=== PATIENT | male | born 1995 | race Caucasian/White ===

== ENCOUNTER 2016-09-25 22:58 | Emergency (ER) | payer BC ==
[~2016-09-25] VITALS: Ht 193 cm; Wt 132.4 kg
[~2016-09-25 22:58] MED LIST: DICL-201 PO
[2016-09-25 23:00] VITALS: TEMP 36.9; Ht 193 cm; Wt 132.4 kg
[2016-09-25] MEDS ORDERED: KETOROLAC TROMETHAMINE 30 MG/ML VIAL IV STA (23:24)
[2016-09-25] MEDS ORDERED: SODIUM CHLORIDE 0.9% 1000ML 1,000 ML IV ONE (23:30)
[2016-09-25 23:41] LABS: BASO % 0.3 %; BASO ABS # 0.02 K/uL (0-0.2); COMPLETE YES; EOS % 1.7 %; HEMATOCRIT 44.5 % (42-52); IG% 0.6 %; LYMPH % 34.4 %; LYMPH ABS # 2.22 K/uL (1.2-3.4); MEAN CELL VOLUME 81.4 fL (80-100); MEAN CORPUSCULAR HEMOGLOBIN 28.3 pg (25-34); MEAN CORPUSCULAR HGB CONC 34.8 g/dl (32-36); MEAN PLATELET VOLUME 10.5 fL (7.4-10.4); MONO % 7.4 %; NEUT % 55.6 %; PLATELET COUNT 163 K/uL (130-400); RED BLOOD COUNT 5.47 M/uL (4.7-6.1); WHITE BLOOD COUNT 6.45 K/uL (4.8-10.8)
[2016-09-26 00:01] LABS: BUN/CREATININE RATIO 14.7 (10-20); CALCIUM 9.4 mg/dl (8.5-10.1); POTASSIUM 3.6 mmol/L (3.5-5.1)
[2016-09-26 00:03] LABS: ALB/GLOB RATIO 1.7 (0.9-2)
[2016-09-26 00:06] LABS: URINE APPEARANCE CLEAR (CLEAR); URINE BILIRUBIN NEG (NEG); URINE COLOR YELLOW; URINE NITRITE NEG (NEG); URINE PH 6.5 (4.5-7.5); UROBILINOGEN NEG (NEG); ZZUR CULT IF INDIC CLEAN CATCH NO
[2016-09-26 00:12] LABS: MANUAL MICROSCOPIC REQUIRED? NO; REVIEW REQ? NO
[2016-09-26] MEDS ORDERED: OPTIRAY 320 IV PRN (01:15)
[2016-09-26 01:28] VITALS: BP 159/99; PULSE 81; O2SAT 98
--- NOTE | 2016-09-26 06:51 | DIAGNOSTIC IMAGING REPORT ---
KUB CLINICAL HISTORY: Left-sided abdominal pain and constipation COMPARISON STUDY: 08/28/2009 FINDINGS: There is no pathologic bowel dilatation. There are no calcification suspicious for renal calculi. There are nonspecific pelvic basin calcifications. In the absence of renal colic, these likely represent phleboliths. IMPRESSION: Unremarkable bowel gas pattern. Electronically signed by: Lukas Martin M.D. 09/26/2016 6:49 AM Dictated Date/Time: 09/26/2016 6:48 AM
--- NOTE | 2016-09-26 07:16 | DIAGNOSTIC IMAGING REPORT ---
CT ABD/PELVIS IV CONTRAST ONLY CLINICAL HISTORY: Left-sided abdominal pain COMPARISON STUDY: 09/02/2009 TECHNIQUE: Following the IV administration of 93 mL of Optiray-320, CT scan of the abdomen and pelvis was performed from the lung bases to the proximal femurs. Images are reviewed in the axial, sagittal, and coronal planes. IV contrast was administered without complication. CT DOSE: 1123.51 mGy.cm FINDINGS: Lower chest: The heart is normal in size and configuration, without pericardial effusion. The lung bases and pleural spaces are clear. Liver: There is mild hepatic steatosis. No focal masses are visualized. Gallbladder: Unremarkable. Spleen: The spleen is mildly enlarged measuring 14 cm. Pancreas: Unremarkable. Adrenal glands: Unremarkable. Kidneys: The 16 mm left renal hypodensity likely representing a cyst. Bowel: There are no transition zones indicate bowel obstruction. There is no acute diverticulitis. By history the appendix is surgically absent. Peritoneum: There is no intraperitoneal free air or abdominal ascites. Vasculature: The abdominal aorta is normal in course and caliber. Adenopathy: There are prominent ileocolic lymph nodes, similar to the prior study and likely reactive. Pelvic viscera: The bladder, and pelvic viscera are unremarkable. Skeletal structures: No destructive osseous lesions are seen. IMPRESSION: 1. No acute intra-abdominal or pelvic findings 2. Mild splenomegaly 3. No evidence of bowel obstruction. No evidence of free air 4. Minimally prominent ileocolic lymph nodes, likely reactive Electronically signed by: Lukas Martin M.D. 09/26/2016 7:15 AM Dictated Date/Time: 09/26/2016 7:10 AM
--- NOTE | 2016-09-26 21:43 | EMERGENCY ROOM VISIT NOTE ---
History First contact with patient: 23:17 Chief Complaint: CONSTIPATION Stated Complaint: POSSIBLE HERNIA/ABD PAIN Nursing Triage Summary: pt reports abd pain x3-4 days. lower left quad. mother reports pt has a hx of repaired hernia as a child. denies n/v. reports constipation, states he went "only a little tonight." reports he has "trouble gettin urine started." when urinating. pt alert and oriented x4. breathing WNL. History of Present Illness The patient is a 20 year old male who presents to the Emergency Room with complaints of left-sided abdominal for the past 3-4 days. The patient states that he has not had normal bowel movements for the past 6 or 7 days. He feels like he is constipated. The patient has a past history of appendectomy and abdominal hernia repair. The patient does not have nausea or vomiting. He does not have recent fever or chills. No chest pain, chest tightness, shortness of breath, or upper abdominal discomfort. The patient does not have recent travel history or known exposure to disease. He is not taking anything [id number] for his discomfort which she currently rates a 6/10. Review of Systems More than 10 systems were reviewed and otherwise negative with the exception of history of present illness. Past Medical/Surgical History Medical Problems: (1) Idiopathic Scoliosis Surgical Problems: (1) History of appendectomy Family History No pertinent family history Social History Smoking Status: Never Smoker Marital Status: single Housing Status: lives with family Occupation Status: student Current/Historical Medications No Active Prescriptions or Reported Meds Allergies Coded Allergies: No Known Allergies (Verified , 09/02/09) Physical Exam Vital Signs Date Time Temp Pulse Resp B/P Pulse Ox O2 Delivery O2 Flow Rate FiO2 09/26/16 01:28 81 18 159/99 98 Room Air 09/26/16 00:27 76 18 174/101 98 Room Air 09/25/16 23:00 36.9 92 20 188/105 96 Room Air Pain Rating (0-10): 2.0 Physical Exam VITALS: Vitals are noted on the nurse's note and reviewed by myself. Vital signs stable. GENERAL: Well-developed, well-nourished, white male, who is in no acute distress and resting comfortably. Patient is cooperative with the examination. HEAD: Normocephalic atraumatic. NECK: Supple without nuchal rigidity. No lymphadenopathy. No thyromegaly. Cervical spine is nontender. HEART: Regular rate and rhythm without murmurs gallops or rubs. LUNGS: Clear to auscultation bilaterally without wheezes, rales or rhonchi. No retractions or accessory muscle use. ABDOMEN: Positive normal bowel sounds x 4. Soft, nontender, without masses or organomegaly. No guarding or rebound tenderness. MUSCULOSKELETAL: No muscle atrophy, erythema, or edema noted. Full range of motion without joint tenderness in all extremities. Medical Decision & Procedures ER Provider Diagnostic Interpretation: KUB CLINICAL HISTORY: Left-sided abdominal pain and constipation COMPARISON STUDY: 08/28/2009 FINDINGS: There is no pathologic bowel dilatation. There are no calcification suspicious for renal calculi. There are nonspecific pelvic basin calcifications. In the absence of renal colic, these likely represent phleboliths. IMPRESSION: Unremarkable bowel gas pattern. CT ABD/PELVIS IV CONTRAST ONLY CLINICAL HISTORY: Left-sided abdominal pain COMPARISON STUDY: 09/02/2009 TECHNIQUE: Following the IV administration of 93 mL of Optiray-320, CT scan of the abdomen and pelvis was performed from the lung bases to the proximal femurs. Images are reviewed in the axial, sagittal, and coronal planes. IV contrast was administered without complication. CT DOSE: 1123.51 mGy.cm FINDINGS: Lower chest: The heart is normal in size and configuration, without pericardial effusion. The lung bases and pleural spaces are clear. Liver: There is mild hepatic steatosis. No focal masses are visualized. Gallbladder: Unremarkable. Spleen: The spleen is mildly enlarged measuring 14 cm. Pancreas: Unremarkable. Adrenal glands: Unremarkable. Kidneys: The 16 mm left renal hypodensity likely representing a cyst. Bowel: There are no transition zones indicate bowel obstruction. There is no acute diverticulitis. By history the appendix is surgically absent. Peritoneum: There is no intraperitoneal free air or abdominal ascites. Vasculature: The abdominal aorta is normal in course and caliber. Adenopathy: There are prominent ileocolic lymph nodes, similar to the prior study and likely reactive. Pelvic viscera: The bladder, and pelvic viscera are unremarkable. Skeletal structures: No destructive osseous lesions are seen. IMPRESSION: 1. No acute intra-abdominal or pelvic findings 2. Mild splenomegaly 3. No evidence of bowel obstruction. No evidence of free air 4. Minimally prominent ileocolic lymph nodes, likely reactive Laboratory Results 09/25/16 23:23 Red Blood Count 5.47, Mean Corpuscular Volume 81.4, Mean Corpuscular Hemoglobin 28.3, Mean Corpuscular Hemoglobin Concent 34.8, Mean Platelet Volume 10.5, Neutrophils (%) (Auto) 55.6, Lymphocytes (%) (Auto) 34.4, Monocytes (%) (Auto) 7.4, Eosinophils (%) (Auto) 1.7, Basophils (%) (Auto) 0.3, Neutrophils # (Auto) 3.58, Lymphocytes # (Auto) 2.22, Monocytes # (Auto) 0.48, Eosinophils # (Auto) 0.11, Basophils # (Auto) 0.02 09/25/16 23:23 Test 09/25/16 23:15 09/25/16 23:23 Urine Color YELLOW Urine Appearance CLEAR (CLEAR) Urine pH 6.5 (4.5-7.5) Urine Specific [place] 1.020 (1.000-1.030) Urine Protein NEG (NEG) Urine Glucose (UA) NEG (NEG) Urine Ketones NEG (NEG) Urine Occult Blood NEG (NEG) Urine Nitrite NEG (NEG) Urine Bilirubin NEG (NEG) Urine Urobilinogen NEG (NEG) Urine Leukocyte Esterase NEG (NEG) White Blood Count 6.45 K/uL (4.8-10.8) Red Blood Count 5.47 M/uL (4.7-6.1) Hemoglobin 15.5 g/dL (14.0-18.0) Hematocrit 44.5 % (42-52) Mean Corpuscular Volume 81.4 fL (80-100) Mean Corpuscular Hemoglobin 28.3 pg (25-34) Mean Corpuscular Hemoglobin Concent 34.8 g/dl (32-36) Platelet Count 163 K/uL (130-400) Mean Platelet Volume 10.5 fL (7.4-10.4) Neutrophils (%) (Auto) 55.6 % Lymphocytes (%) (Auto) 34.4 % Monocytes (%) (Auto) 7.4 % Eosinophils (%) (Auto) 1.7 % Basophils (%) (Auto) 0.3 % Neutrophils # (Auto) 3.58 K/uL (1.4-6.5) Lymphocytes # (Auto) 2.22 K/uL (1.2-3.4) Monocytes # (Auto) 0.48 K/uL (0.11-0.59) Eosinophils # (Auto) 0.11 K/uL (0-0.5) Basophils # (Auto) 0.02 K/uL (0-0.2) RDW Standard Deviation 37.2 fL (36.4-46.3) RDW Coefficient of Variation 12.5 % (11.5-14.5) Immature Granulocyte % (Auto) 0.6 % Immature Granulocyte # (Auto) 0.04 K/uL (0.00-0.02) Anion Gap 8.0 mmol/L (3-11) Est Creatinine Clear Calc Drug Dose 176.5 ml/min Estimated GFR () 125.9 Estimated GFR (Non- 108.6 BUN/Creatinine Ratio 14.7 (10-20) Calcium Level 9.4 mg/dl (8.5-10.1) Total Bilirubin 0.8 mg/dl (0.2-1) Aspartate Amino Transf (AST/SGOT) 20 U/L (15-37) Alanine Aminotransferase (ALT/SGPT) 65 U/L (12-78) Alkaline Phosphatase 50 U/L (45-117) Total Protein 7.5 gm/dl (6.4-8.2) Albumin 4.7 gm/dl (3.4-5.0) Globulin 2.8 gm/dl (2.5-4.0) Albumin/Globulin Ratio 1.7 (0.9-2) Lipase 125 U/L (73-393) Medications Administered Medications (Trade) Dose Ordered Sig/Michael Route Start Time Stop Time Status Last Admin Dose Admin Sodium Chloride (Nss 1000ml) 1,000 ml @ 999 mls/hr Q1H1M ONCE IV 09/25/16 23:30 09/26/16 00:30 DC 09/25/16 23:34 999 MLS/HR Ketorolac Tromethamine (Toradol Inj) 30 mg NOW STAT IV 09/25/16 23:24 09/25/16 23:26 DC 09/25/16 23:35 30 MG ED Course Physical exam and history were performed. Nursing notes and EMR were reviewed. Patient appears to have left-sided abdominal pain symptoms for the past several days. The patient does not have significant tenderness on examination. IV access was established and labs were obtained. The patient was hydrated with normal saline and given IV Toradol for comfort. KUB was performed. The patient's blood work is as above and was reviewed. He does not have a significantly elevated white blood cell count, gross anemia, bandemia, or significant electrolyte imbalance. KUB did not show significant acute findings. I discussed his with my attending physician, Dr Jesus, and we elected to perform a CT scan of the abdomen. The CT scan was also without significant findings. On repeat examination the patient continued to have a nontender abdomen. He certainly does not have signs of peritonitis or an exam consistent with an acute surgical process. I discussed options of care with the patient and family , and overall he does appear stable for discharge home. The patient symptoms could be the result of a foodborne illness or possible viral etiology. He was educated on the importance to return to the emergency department with any new, worsening, or evolving symptoms. The patient was pleased with this plan and rated his discomfort a 1/10 at the time of departure. The chart was completed utilizing [employer] Speech Voice Recognition Software. Grammatical errors, random word insertions, pronoun errors, and incomplete sentences are an occasional consequence of this system due to software limitations, ambient noise, and hardware issues. Any formal questions or concerns about the content, text, or information contained within the body of this dictation should be directly addressed to the provider for clarification. . Medical Decision Differential diagnosis: Etiologies such as appendicitis, diverticulitis, PUD, biliary pathology, UTI, pancreatitis, obstruction, mesenteric ischemia, aortic pathology, infections, inflammatory bowel disease, renal colic, as well as others were entertained. Impression Primary Impression: Left sided abdominal pain Departure Information Dispostion Home / Self-Care Condition GOOD Prescriptions No Active Prescriptions or Reported Meds Forms HOME CARE DOCUMENTATION FORM, IMPORTANT VISIT INFORMATION Patient Instructions My [facility] Additional Instructions You were seen and evaluated today on an emergency basis only. This is not a substitute for, or an effort to provide, complete comprehensive medical care. It is not possible to recognize and treat all injuries or illnesses in a single emergency department visit. For this reason it is recommended that you followup with your primary care physician this week for ongoing care and evaluation. Drink plenty of fluids and remain well hydrated. You are welcome to return to the emergency department anytime with new, worsening, or concerning symptoms.
== END 2016-09-26 01:51 | disposition home or self-care (01) ==
LOC: C.EDB 22:59 → C.EDC 09-26 01:51
DX: R10.32 Left lower quadrant pain (principal); M41.20 Other idiopathic scoliosis, site unspecified